=== PATIENT | male | born 1990 | race Caucasian/White ===

== ENCOUNTER 2018-03-17 16:18 | Outpatient (CLI) | payer OTHER ==
--- NOTE | 2018-03-19 14:14 | MRI Report ---
Procedure Date: 03/17/2018 Accession Number: [id number] / [id number] Procedure: MRI - Cervical Spine W/O CPT Code: FULL RESULT: EXAM: MRI CERVICAL SPINE WITHOUT CONTRAST EXAM DATE: 03/17/2018 04:51 PM. CLINICAL HISTORY: PARESTHESIA OF SKIN. COMPARISONS: None. TECHNIQUE: Multiplanar, multisequence T1-weighted and fluid-sensitive sequences of the cervical spine without contrast. Other: None. FINDINGS: Neurologic Structures: The visualized posterior fossa structures are unremarkable. No signal abnormality in the visualized spinal cord. Alignment: No scoliosis or spondylolisthesis. Bone Marrow: No gross fractures or bone lesions. No marrow edema. Interspace Levels/Facets: C1-C2: Unremarkable. C2-C3: Unremarkable. C3-C4: Unremarkable. C4-C5: Unremarkable. C5-C6: Mild disk space dehydration without significant narrowing. Small midline posterior disk protrusion with mild ventral thecal sac indentation, but no cord impingement or significant canal stenosis. Patent foramina. C6-C7: Unremarkable. C7-T1: Unremarkable. Musculature: Normal. No edema or fatty atrophy. Other: The paravertebral and prevertebral soft tissues are normal. IMPRESSION: 1. Mild degenerative disk disease at C5-C6 where there is a shallow posterior disk protrusion, but no significant stenosis or neural impingement. 2. Otherwise negative study. No focal cord signal abnormality. [facility]
== END 2018-03-17 16:19 | disposition home or self-care (01) ==
LOC: DI 16:18
PROVIDERS: ATTEND Radiology Diagnostic Radiology
DX: M50.322 Other cervical disc degeneration at C5-C6 level (principal); M50.222 Other cervical disc displacement at C5-C6 level; R20.2 Paresthesia of skin
CPT/HCPCS: 72141

== ENCOUNTER 2018-08-30 05:51 | Day surgery (SDC) | payer OTHER ==
[~2018-08-30 05:51] MED LIST: ACETAMINOPHEN 1,000 MG/100 ML 100 ML IV ONE; DEXAMETHASONE 4 MG/ML VIAL IVP ONE; KETOROLAC 30 MG/ML VIAL IVP ONE; LIDOCAINE-MPF 2% 5 ML VIAL IM ONE; MIDAZOLAM 2 MG/2 ML VIAL IVP ONE; ONDANSETRON 4 MG/2 ML VIAL IVP ONE; PROPOFOL 200 MG/20 ML VIAL IVP ONE; fentaNYL 100 MCG/2 ML VIAL IVP ONE
[2018-08-30] MEDS ORDERED: ceFAZolin 2 GM/50 ML 2 GM/50 ML BAG IV ONE (06:27)
[2018-08-30] MEDS ORDERED: ROPIVACAINE 0.5% PF 20 ML AMPULE ONE (07:01)
[2018-08-30] MEDS ORDERED: LACTATED RINGERS 1,000 ML IV ONE ×2 (07:04→09:21)
--- NOTE | 2018-08-30 07:30 | ANESTHESIA ---
Pre-Anesthesia VS, & Labs - Diagnosis cubital tunnel syndrome - Procedure right ulnar nerve transposition Height 6 ft 2 in Weight (kg) 104.33 kg - NPO >8 hours Home Medications and Allergies Home Medications: Ambulatory Orders Loratadine [Claritin] 10 mg PO DAILY 08/29/18 Loratadine [Claritin] 10 mg PO DAILY 08/29/18 Allergies/Adverse Reactions: Allergies Allergy/AdvReac Type Severity Reaction Status Date / Time No Known Drug Allergies Allergy Verified 08/29/18 14:50 Anes History & Medical History - Anesthetic History Anesthesia Complications: reports: No previous complications - Medical History Cardiovascular: reports: None Pulmonary: reports: None Gastrointestinal: reports: None Urinary: reports: None Musculoskeletal: reports: Other Endocrine/Autoimmune: reports: None Skin: reports: None Exam General: Alert Dental: WNL Mouth Opening: Greater than 4 Fingerbreadths Mallampati classification: II Thyromental Distance: greater than 6 cm Respiratory: Lungs clear Cardiovascular: Regular rate, Normal S1, Normal S2 Plan Anesthesia Type: General Consent for Procedure(s) Verified and Reviewed: Yes Code Status: Attempt Resuscitation ASA classification: 1-Healthy patient Is this case an emergency?: No
[2018-08-30] MEDS ORDERED: ONDANSETRON 4 MG/2 ML VIAL IVP PRN (10:01)
[2018-08-30] MEDS ORDERED: oxyCODONE 5 MG TABLET PO PRN (10:01)
--- NOTE | 2018-08-30 10:22 | OPERATIVE REPORT ---
Operative Report - General Procedure Date: 08/30/18 Planned Procedure: Right ulnar nerve subcutaneous transposition Pre-Op Diagnosis: right cubital tunnel syndrome with unstable ulnar nerve Procedure Performed: Right ulnar nerve subcutaneous transposition Post Op Diagnosis: same - Procedure Note Primary Surgeon: mnuira rodriguez Secondary Surgeon: ana Pierre Estimated Blood Loss (mL): 25 Complications: None - Other Other Information/Narrative: Indication For Surgery: This is a 27-year-old male who has had many years of ulnar nerve symptoms and pain when it subluxes over the medial epicondyle. The symptoms are bilaterally. A nerve conduction study showed evidence of cubital tunnel syndrome. He has failed nonoperative treatment. The risks, benefits, and alternatives were discussed. Risks include pain, bleeding, infection, damage to nearby structures to include nerves and blood vessels, numbness, lack of symptom relief, need for further surgery, DVT, PE, stroke, and . Written consent was obtained. Procedure in Detail: The patient was met in the pre-operative hold area on the day of the procedure. The operative extremity was signed and questions were answered. The patient was brought to the operating room and a general anesthetic was administered. Supine position was used and bony prominences were padded. Standard prepping and draping was performed. A sterile tourniquet was applied. A time out confirmed patient identification, laterality, procedure, allergies, antibiotics, and images. An Esmarch was used to exsanguinate the limb and the tourniquet was elevated to 250 mmHg. Total tourniquet time was 63 minutes. A 10 cm incision was made along the course of the ulnar nerve just posterior to the medial epicondyle. Scissor dissection was carried out and branches of the medial antebrachial cutaneous nerve were identified and protected. Scissor dissection was carried down to the cubital tunnel and it was opened just posterior to the medial epicondyle. The ulnar nerve was identified and the cubital tunnel was dissected distally very carefully. I encountered the initial sensory branch to the capsule and the motor branches to the FCU and protected them. I sharply transected the fascia over the FCU to gain further access to the ulnar nerve as it passed deep into the muscle. blunt dissection was used to dissect the muscle and exposed the nerve further. I mobilized the branches as possible and perform slight intraneural immobilization as well. I then moved proximal and followed the nerve up the medial arm taking care to protect any cutaneous branches. I freed the nerve proximally 8 cm from the med ial epicondyle. I took care to leave as many veins as possible attached to the nerve. I then moved anteriorly and cleared tissue off of the intermuscular septum and I resected a portion of the intermuscular septum down to the medial epicondyle. Vessel loops were placed around the nerve to ensure a circumferential dissection and that it was completely freed. I then took a flap of the fascia overlying the flexor pronator mass 2 cm from the medial epicondyle and left it attached to the medial epicondyle to use as a sling. I then transected any distal fascia that would serve as a pinch point. I then transposed the nerve anterior to the medial epicondyle and assessed range of motion ensuring that there are no pinch points or areas of compression. I then reduced the skin edges together and assessed to wear to attach the fascial sling. I then used 0 Vicryl to attach the fascial sling and I performed range of motion again of the elbow ensuring that the nerve glided freely. I then dropped the tourniquet and obtained hemostasis with bipolar electrocautery. Satisfied with this I irrigated the wound copiously and closed in a layered fashion with 2-0 Vicryl in the dermis and running Monocryl in the skin. A sterile dressing was then applied and a bulky dressing was placed without plaster. He was awakened and transferred to the recovery room Postoperative plan: Gentle range of motion from 0-2 weeks. Follow-up at 2 weeks to cut Monocryl suture ends and assess the wound. I will remove the bulky dressing at that time and advance range of motion. No strengthening until 6 wepatrica archer.
[2018-08-30] MEDS ORDERED: oxyCODONE 5 MG TABLET ONE (10:43)
[2018-08-30 11:52] VITALS: BP 131/90
== END 2018-08-30 05:52 | disposition home or self-care (01) ==
LOC: SDS 05:51
PROVIDERS: ATTEND Orthopaedic Surgery
PROC: 01S40ZZ Reposition Ulnar Nerve, Open Approach (ICD-10-PCS; principal; 2018-08-30 07:30)
DX: G56.21 Lesion of ulnar nerve, right upper limb (principal)
CPT/HCPCS: 64718; A9270; J0131; J0690; J7120

== ENCOUNTER 2019-08-24 21:49 | Emergency (ER) | payer OTHER ==
[2019-08-24] MEDS ORDERED: CHERRY SYRUP 10 ML UDC PO ONE (22:17)
[2019-08-24] MEDS ORDERED: KETOROLAC 30 MG/ML VIAL IM STA (22:17)
[2019-08-24] MEDS ORDERED: oxyCODONE/ACET 5/325 Prepack 4 PO STA (22:17)
[2019-08-24] MEDS ORDERED: methocarbamoL 500 MG TABLET PO STA (22:17)
[2019-08-24] MEDS ORDERED: MORPHINE 10 MG/ML VIAL IM STA (22:17)
[2019-08-24] MEDS ORDERED: DEXAMETHASONE 10 MG/ML VIAL PO STA (22:17)
--- NOTE | 2019-08-24 23:04 | ED Physician Documentation ---
PD HPI BACK INJURY - Stated complaint Stated Complaint: BACK PX - History obtained from History obtained from: Patient - History of Present Illness Location: Lower Type of injury: Twist (he was just getting up from couch and felt onset of lower to mid lumbar pain, going to both sides of low back. Hurts with ROM and bending.). No: Fall Where injury occurred: Home Review of Systems Constitutional: denies: Fever, Chills Nose: denies: Rhinorrhea / runny nose, Congestion Throat: denies: Sore throat Respiratory: denies: Cough GI: denies: Abdominal Pain, Nausea, Vomiting, Diarrhea : denies: Dysuria, Frequency, Hematuria Skin: denies: Rash, Lesions Neurologic: denies: Focal weakness, Numbness PD PAST MEDICAL HISTORY - Past Medical History Past Medical History: No Cardiovascular: None Respiratory: None Endocrine/Autoimmune: None GI: None : None HEENT: None Psych: None Musculoskeletal: Other Derm: None - Past Surgical History Past Surgical History: Yes - Present Medications Home Medications: Ambulatory Orders Medication Instructions Recorded Confirmed Loratadine [Claritin] 10 mg PO DAILY 08/29/18 08/24/19 Cyclobenzaprine [Flexeril] 10 mg PO TID PRN #20 tablet 08/24/19 Ibuprofen [Motrin] 600 mg PO TID PRN #25 tab 08/24/19 Oxycodone HCl/Acetaminophen 1 - 2 each PO Q6H PRN #18 tablet 08/24/19 [Percocet 5-325 mg Tablet] dexAMETHasone [Decadron] 4 mg PO DAILY #5 tablet 08/24/19 - Allergies Allergies/Adverse Reactions: Allergies Allergy/AdvReac Type Severity Reaction Status Date / Time No Known Drug Allergies Allergy Verified 08/24/19 21:57 - Social History Does the pt smoke?: No Smoking Status: Never smoker - Immunizations Immunizations are current?: Yes - POLST Patient has POLST: No PD ED PE NORMAL - Vitals Vital signs reviewed: Yes - General General: Alert and oriented X 3, Well developed/nourished, Other (appears uncomfortable with ROM of the low back. guarded ROM. ) - Cardiac Cardiac: RRR, No murmur - Respiratory Respiratory: Clear bilaterally - Abdomen Abdomen: Soft, Non tender - Back Back: No CVA TTP, No spinal TTP (tender in lumbar muscles. ) - Derm Derm: Normal color, Warm and dry - Neuro Neuro: Alert and oriented X 3, No motor deficit, No sensory deficit, Other (normal knee reflexes) Results - Vitals Vitals: Oxygen O2 Source Room air PD MEDICAL DECISION MAKING - ED course Complexity details: considered differential (low back pain without red flags to suggest need for testing/imaging. ), d/w patient Departure - Departure Disposition: 01 Home, Self Care Clinical Impression: Low back strain Qualifiers: Encounter type: initial encounter Qualified Code(s): S39.012A - Strain of muscle, fascia and tendon of lower back, initial encounter Condition: Stable Record reviewed to determine appropriate education?: Yes Instructions: ED Low Back Pain Injury Follow-Up: ROLAND ROWE III, MD [Primary Care Provider] - Prescriptions: Cyclobenzaprine [Flexeril] 10 mg PO TID PRN #20 tablet PRN Reason: Spasms dexAMETHasone [Decadron] 4 mg PO DAILY #5 tablet Ibuprofen [Motrin] 600 mg PO TID PRN #25 tab PRN Reason: Pain Oxycodone HCl/Acetaminophen [Percocet 5-325 mg Tablet] 1 - 2 each PO Q6H PRN #18 tablet PRN Reason: pain Comments: Range of motion as comfortable for the back and do some gentle stretching and heat. Physical modalities such as massage chiropractic or physical therapy are good for the back. No repetitive bending lifting or twisting for the next 3 to 5 days until well improved. Use of anti-inflammatory such as ibuprofen 600 mg 3 times a day with food. You could also add Decadron steroid anti-inflammatory for a few days as prescribed. Add muscle relaxant Flexeril as needed for stiffness. To that add Tylenol or pain medicine if needed for worse pain. Recheck if not improved well over the next several days to a week. Return if worsening symptoms or other associated symptoms such as leg weakness or numbness, blood in the urine, fever, rash, abdominal pain, etc. These symptoms would signify something other than just a strain of the back. Forms: Activity restrictions Discharge Date/Time: 08/24/19 23:12
[2019-08-24 23:13] VITALS: BP 138/101
== END 2019-08-24 23:12 | disposition home or self-care (01) ==
LOC: ED 21:49
DX: S39.012A Strain of muscle, fascia and tendon of lower back, initial encounter (principal); X50.1XXA Overexertion from prolonged static or awkward postures, initial encounter; Y93.89 Activity, other specified
CPT/HCPCS: 96372; 99283; A9270